=== PATIENT | female | born 1935 | race Two or more races ===

== ENCOUNTER 2021-05-26 16:26 | Emergency (ER) | payer MEDICARE, MEDICAID ==
[~2021-05-26] VITALS: Ht 160 cm; Wt 56.7 kg
[~2021-05-26 16:26] MED LIST: FURO1TAB31; NORVASC; OME20GT; PEPCID; POTA-220
[2021-05-26 20:10] LABS: Basophils # (auto) 0 10 ^3/uL (0-0.2); Basophils % (auto) 0.7 % (0.0-2.0); Eosinophils # (auto) 0.3 10 ^3/uL (0-0.8); Eosinophils % (auto) 6.7 % (0.0-7.0); Hematocrit 23.2 % (36.0-46.0); Hemoglobin 7.2 g/dL (12.2-16.2); Lymphocytes # (auto) 0.8 10 ^3/uL (0.4-5.4); Lymphocytes % (auto) 22.2 % (10.0-50.0); Mean Corpuscular Hemoglobin 27.2 pg (28.0-32.0); Mean Corpuscular Hgb Conc. 31.2 g/dL (32.0-36.0); Mean Corpuscular Volume 87.4 fL (80.0-100.0); Monocytes # (auto) 0.4 10 ^3/uL (0-1.3); Monocytes % (auto) 11.2 % (0.0-12.0); Neutrophils # (auto) 2.2 10 ^3/uL (1.6-8.6); Neutrophils % (auto) 59.2 % (37.0-80.0); Nucleated Red Blood Cells % 0.2 %; Red Blood Cells 2.66 10^6/uL (4.0-5.20); White Blood Cell 3.8 10^3/uL (4.4-10.8)
[2021-05-26 20:28] LABS: Albumin 3.1 g/dL (3.4-5.0); Anion Gap 7 (5-15); BUN/Creatinine Ratio 14.4; Blood Urea Nitrogen 13 mg/dL (7-18); Calcium 8.7 mg/dL (8.5-10.1); Carbon Dioxide 23 mmol/L (21-32); Chloride 116 mmol/L (98-107); GFR African American 76 mL/min; GFR Non-African American 63 mL/min; Glucose 111 mg/dL (74-106); Magnesium 2.7 mg/dL (1.6-2.6); Potassium 3.9 mmol/L (3.5-5.1); Sodium 146 mmol/L (136-145)
[2021-05-26 20:35] LABS: Alanine Aminotransferase 23 U/L (13-56); Alkaline Phosphatase 117 U/L (45-117); Aspartate Aminotransferase 22 U/L (15-37); Bilirubin, Total 0.4 mg/dL (0.2-1.0); Total Protein 6.5 g/dL (6.4-8.2)
[2021-05-26 20:36] LABS: Urine Bacteria FEW /hpf (None Seen); Urine Blood Negative /uL (Negative); Urine Specific Gravity 1.005 (1.001-1.035); Urine WBC 13 /hpf (0 - 5)
[2021-05-26] MEDS ORDERED: cefTRIAXone 1GM/50ML D5W 50 ML IV ONE (23:15)
[2021-05-27] MEDS ORDERED: ACETAMINOPHEN 500 MG TAB PO ONE (00:45)
[2021-05-27 01:42] VITALS: BP 121/44
== END 2021-05-27 01:46 | disposition home or self-care (01) ==
LOC: EDBD 16:26 → ER 16:26
DX: F41.0 Panic disorder [episodic paroxysmal anxiety] (principal); R53.1 Weakness; R42 Dizziness and giddiness; R06.02 Shortness of breath; I10 Essential (primary) hypertension; E78.5 Hyperlipidemia, unspecified; F17.210 Nicotine dependence, cigarettes, uncomplicated; Z90.710 Acquired absence of both cervix and uterus; Z79.899 Other long term (current) drug therapy
CPT/HCPCS: 36415; 71045; 80053; 81001; 83735; 83880; 84484; 85025; 93005; 96365; 99285; J0696

== ENCOUNTER 2022-04-21 11:16 | Inpatient (IN) | payer MEDICARE, MEDICAID ==
[~2022-04-21] VITALS: Ht 160 cm; Wt 54.5 kg
[2022-04-21 12:47] LABS: Urine Bacteria MOD /hpf (None Seen); Urine Blood Negative /uL (Negative); Urine Specific Gravity 1.013 (1.001-1.035); Urine WBC 78 /hpf (0 - 5)
[2022-04-21 12:59] LABS: Albumin 3.6 g/dL (3.4-5.0); Calcium 8.5 mg/dL (8.5-10.1); Potassium 4.3 mmol/L (3.5-5.1)
[2022-04-21 13:00] LABS: Eosinophils # (auto) 0.3 10 ^3/uL (0-0.8); Hemoglobin 7.8 g/dL (12.2-16.2); Lymphocytes # (auto) 0.9 10 ^3/uL (0.4-5.4); Lymphocytes % (auto) 14.8 % (10.0-50.0); Monocytes # (auto) 0.6 10 ^3/uL (0-1.3)
[2022-04-21 13:01] LABS: Basophils # (auto) 0 10 ^3/uL (0-0.2); Basophils % (auto) 0.5 % (0.0-2.0); Eosinophils % (auto) 4.5 % (0.0-7.0); Hematocrit 24.8 % (36.0-46.0); Mean Corpuscular Hemoglobin 25.3 pg (28.0-32.0); Mean Corpuscular Hgb Conc. 31.4 g/dL (32.0-36.0); Mean Corpuscular Volume 80.8 fL (80.0-100.0); Monocytes % (auto) 9.1 % (0.0-12.0); Neutrophils # (auto) 4.3 10 ^3/uL (1.6-8.6); Neutrophils % (auto) 71.1 % (37.0-80.0); Red Blood Cells 3.07 10^6/uL (4.0-5.20); Red Cell Distribution Width 18.3 % (11.8-14.3); White Blood Cell 6.1 10^3/uL (4.4-10.8)
[2022-04-21 13:03] LABS: BUN/Creatinine Ratio 25.6; Bilirubin, Total 0.5 mg/dL (0.2-1.0); Total Protein 6.9 g/dL (6.4-8.2)
[2022-04-21 13:17] LABS: INR 0.93 (0.9-1.15); Partial Thromboplastin Time 26.5 sec (24.6-33.4)
[2022-04-21] MEDS ORDERED: MORPHINE SULFATE INJ 2 MG/ml SYRG IV PRN (18:45)
[2022-04-21] MEDS ORDERED: NITROGLYCERIN 0.4 MG SL TAB SL PRN (18:45)
[2022-04-21 19:36] LABS: Cholesterol 101 mg/dL (< 200)
[2022-04-21 19:40] LABS: HDL Cholesterol 40 mg/dL (40-59); LDL Cholesterol 47 mg/dL (< 100); Triglycerides 216 mg/dL (< 150)
[2022-04-21] MEDS ORDERED: FUROSEMIDE 20 MG/2 ML VIAL IV ONE (23:00)
[2022-04-21 23:23] VITALS: BP 119/36
[2022-04-21 23:27] LABS: Hematocrit 22.4 % (36.0-46.0)
[2022-04-21 23:41] VITALS: BP 119/33
[2022-04-22] VITALS (9 sets, daily range): BP systolic 113–145; BP diastolic 32–50
[2022-04-22] MEDS ORDERED: ACETAMINOPHEN 325 MG TAB PO PRN (00:03)
[2022-04-22 05:27] LABS: Basophils # (auto) 0 10 ^3/uL (0-0.2); Eosinophils # (auto) 0.3 10 ^3/uL (0-0.8); Lymphocytes # (auto) 1.2 10 ^3/uL (0.4-5.4); Monocytes # (auto) 0.7 10 ^3/uL (0-1.3); Monocytes % (auto) 11.3 % (0.0-12.0)
[2022-04-22 05:31] LABS: Basophils % (auto) 0.7 % (0.0-2.0); Eosinophils % (auto) 5.1 % (0.0-7.0); Hematocrit 28.7 % (36.0-46.0); Hemoglobin 9.3 g/dL (12.2-16.2); Mean Corpuscular Hemoglobin 26.2 pg (28.0-32.0); Mean Corpuscular Hgb Conc. 32.5 g/dL (32.0-36.0); Mean Corpuscular Volume 80.5 fL (80.0-100.0); Neutrophils # (auto) 3.7 10 ^3/uL (1.6-8.6); Neutrophils % (auto) 62.9 % (37.0-80.0); Nucleated Red Blood Cells % 0.1 %; Red Blood Cells 3.56 10^6/uL (4.0-5.20)
[2022-04-22 05:45] LABS: Calcium 8.6 mg/dL (8.5-10.1); Potassium 3.9 mmol/L (3.5-5.1)
[2022-04-22 05:51] LABS: Albumin 3.3 g/dL (3.4-5.0); BUN/Creatinine Ratio 25.4; Bilirubin, Total 0.4 mg/dL (0.2-1.0); Total Protein 6.5 g/dL (6.4-8.2)
[2022-04-22] MEDS: ENOXAPARIN SOD 40 MG/0.4 ML SYRINGE SC SCH (08:57)
[2022-04-22] MEDS: PANTOPRAZOLE 40 MG/10 ML VIAL INJ IV SCH (08:57)
[2022-04-22] MEDS ORDERED: PNEUMOCOCCAL VACC POLYS 25 MCG/0.5 ML VIAL IM ONE (10:00)
[2022-04-22] MEDS ORDERED: NICOTINE 7MG/24HR TOPICAL PATCH TD SCH (10:00)
[2022-04-22] MEDS ORDERED: cefTRIAXone 1GM/50ML D5W 50 ML IV ONE (11:30)
[2022-04-22] MEDS ORDERED: DOCUSATE SOD 100 MG CAP PO ONE (12:00)
[2022-04-22] MEDS ORDERED: LACTULOSE 20Gm/30ML SOLN PO ONE (12:00)
[2022-04-22] MEDS: DOCUSATE SOD 100 MG CAP PO SCH (22:24)
[2022-04-22] MEDS: LACTULOSE 20Gm/30ML SOLN PO SCH (22:24)
[2022-04-23 04:35] VITALS: BP 128/48
[2022-04-23 08:00] VITALS: BP 141/37
[2022-04-23 08:17] VITALS: BP 141/37
[2022-04-23] MEDS ORDERED: cefTRIAXone 1GM/50ML D5W 50 ML IV SCH (09:00)
[2022-04-23] MEDS: LACTULOSE 20Gm/30ML SOLN PO SCH (10:00)
[2022-04-23] MEDS: DOCUSATE SOD 100 MG CAP PO SCH (10:01)
[2022-04-23] MEDS: PANTOPRAZOLE 40 MG/10 ML VIAL INJ IV SCH (10:02)
[2022-04-23] MEDS: ENOXAPARIN SOD 40 MG/0.4 ML SYRINGE SC SCH (10:02)
[2022-04-23 11:54] VITALS: BP 129/38
[2022-04-23 13:39] VITALS: BP 145/48
== END 2022-04-23 14:15 | disposition home or self-care (01) | DRG 812 ==
LOC: ER 11:16 → TELE 18:45 → TELE-EAST 22:10
PROVIDERS: ADMIT Registered Nurse; ATTEND Internal Medicine
PROC: 30233N1 Transfusion of Nonautologous Red Blood Cells into Peripheral Vein, Percutaneous Approach (ICD-10-PCS; principal; 2022-04-21)
DX: D64.9 Anemia, unspecified (principal); N39.0 Urinary tract infection, site not specified; E78.5 Hyperlipidemia, unspecified; I10 Essential (primary) hypertension; K27.9 Peptic ulcer, site unspecified, unspecified as acute or chronic, without hemorrhage or perforation; R51.9 Headache, unspecified; R79.89 Other specified abnormal findings of blood chemistry; F17.210 Nicotine dependence, cigarettes, uncomplicated; K59.00 Constipation, unspecified; Z87.11 Personal history of peptic ulcer disease; Z90.710 Acquired absence of both cervix and uterus; Z20.822 Contact with and (suspected) exposure to COVID-19
CPT/HCPCS: 36415; 70450; 74176; 80053; 80061; 81001; 82270; 83036; 84443; 85014; 85018; 85025; 85610; 85730; 86850; 86900; 86901; 86920; 87086; 87088; 87186; 93005; 93306; 93886; C9113; G0378; J0696

== ENCOUNTER 2022-08-15 21:38 | Emergency (ER) | payer MEDICARE, MEDICAID ==
[~2022-08-15] VITALS: Ht 157.5 cm; Wt 63.5 kg
[2022-08-15 23:03] LABS: Eosinophils # (auto) 0.2 10 ^3/uL (0-0.8); Hemoglobin 8.9 g/dL (12.2-16.2); Lymphocytes # (auto) 0.2 10 ^3/uL (0.4-5.4); Monocytes # (auto) 0.5 10 ^3/uL (0-1.3)
[2022-08-15 23:09] LABS: Basophils # (auto) 0 10 ^3/uL (0-0.2); Basophils % (auto) 0.5 % (0.0-2.0); Eosinophils % (auto) 1.9 % (0.0-7.0); Hematocrit 27.2 % (36.0-46.0); Lymphocytes % (auto) 2.3 % (10.0-50.0); Mean Corpuscular Hemoglobin 24.8 pg (28.0-32.0); Mean Corpuscular Hgb Conc. 32.7 g/dL (32.0-36.0); Mean Corpuscular Volume 75.9 fL (80.0-100.0); Monocytes % (auto) 4.8 % (0.0-12.0); Neutrophils # (auto) 8.7 10 ^3/uL (1.6-8.6); Neutrophils % (auto) 90.5 % (37.0-80.0); Red Blood Cells 3.58 10^6/uL (4.0-5.20); White Blood Cell 9.6 10^3/uL (4.4-10.8)
[2022-08-15 23:19] LABS: Albumin 3.2 g/dL (3.4-5.0); BUN/Creatinine Ratio 16.5; Potassium 3.5 mmol/L (3.5-5.1); Red Cell Distribution Width 21.8 % (11.8-14.3)
[2022-08-15 23:22] LABS: Bilirubin, Total 0.3 mg/dL (0.2-1.0); Total Protein 6.4 g/dL (6.4-8.2)
[2022-08-16 02:17] LABS: Urine Bacteria None Seen /hpf (None Seen)
[2022-08-16 02:18] LABS: Urine Specific Gravity 1.013 (1.001-1.035)
[2022-08-16 02:19] LABS: Urine Blood 1+ /uL (Negative); Urine WBC 21 /hpf (0 - 5); Urine WBC Clumps PRESENT /hpf (None Seen)
[2022-08-16 02:30] VITALS: BP 125/37
[2022-08-16] MEDS ORDERED: CIPR-173 PO (03:14)
[2022-08-16] MEDS ORDERED: cefTRIAXone 1GM/50ML D5W 50 ML IV ONE (03:15)
[2022-08-16] MEDS ORDERED: cefTRIAXone SOD 1,000 MG VL IM ONE (03:30)
== END 2022-08-16 03:30 | disposition home or self-care (01) ==
LOC: EDBD 21:38 → EDUNIT# 21:38 → ER 21:40
DX: N39.0 Urinary tract infection, site not specified (principal); I10 Essential (primary) hypertension; E78.5 Hyperlipidemia, unspecified; Z86.2 Personal history of diseases of the blood and blood-forming organs and certain disorders involving the immune mechanism; Z90.49 Acquired absence of other specified parts of digestive tract; Z90.710 Acquired absence of both cervix and uterus; Z79.899 Other long term (current) drug therapy; Z20.822 Contact with and (suspected) exposure to COVID-19
CPT/HCPCS: 36415; 71045; 80053; 81001; 85025; 87426; 87804; 93005; 96372; 99285; J0696

== ENCOUNTER 2022-09-09 12:57 | Inpatient (IN) | payer MEDICARE, MEDICAID ==
[~2022-09-09] VITALS: Ht 160 cm; Wt 53.7 kg
[~2022-09-09 12:57] MED LIST changes: +CIPR-173 PO
[2022-09-09 13:48] LABS: Basophils # (auto) 0 10 ^3/uL (0-0.2); Basophils % (auto) 0.4 % (0.0-2.0); Hemoglobin 8.8 g/dL (12.2-16.2); Neutrophils # (auto) 3.7 10 ^3/uL (1.6-8.6); White Blood Cell 5.6 10^3/uL (4.4-10.8)
[2022-09-09 13:49] LABS: Eosinophils # (auto) 0.2 10 ^3/uL (0-0.8); Eosinophils % (auto) 4.3 % (0.0-7.0); Hematocrit 27.6 % (36.0-46.0); Lymphocytes % (auto) 18.1 % (10.0-50.0); Mean Corpuscular Hemoglobin 26.5 pg (28.0-32.0); Mean Corpuscular Hgb Conc. 31.8 g/dL (32.0-36.0); Mean Corpuscular Volume 83.5 fL (80.0-100.0); Monocytes # (auto) 0.6 10 ^3/uL (0-1.3); Neutrophils % (auto) 67.2 % (37.0-80.0); Nucleated Red Blood Cells % 0.1 %; Red Cell Distribution Width 27.7 % (11.8-14.3)
[2022-09-09 13:58] LABS: Albumin 3.7 g/dL (3.4-5.0); BUN/Creatinine Ratio 15.5; Calcium 8.4 mg/dL (8.5-10.1); Magnesium 2.4 mg/dL (1.6-2.6); Potassium 3.8 mmol/L (3.5-5.1)
[2022-09-09 14:01] LABS: Bilirubin, Total 0.3 mg/dL (0.2-1.0); Total Protein 6.4 g/dL (6.4-8.2)
[2022-09-09] MEDS ORDERED: NITROGLYCERIN 0.4 MG SL TAB SL PRN (18:45)
[2022-09-09] MEDS ORDERED: ONDANSETRON HCL 4 MG/2 ML VIAL IV PRN (18:45)
[2022-09-09] MEDS ORDERED: MORPHINE SULFATE 4 MG/ML SYR/VIAL IV PRN (18:45)
[2022-09-09 20:17] LABS: INR 0.95 (0.9-1.15)
[2022-09-09 23:30] VITALS: BP 188/100
[2022-09-10] VITALS (7 sets, daily range): BP systolic 126–161; BP diastolic 34–54
[2022-09-10] MEDS: ACETAMINOPHEN 325 MG TAB PO PRN ×2 (00:25→21:11)
[2022-09-10] MEDS: ATORVASTATIN 20 MG TAB PO SCH ×2 (00:26→21:11)
[2022-09-10] MEDS ORDERED: hydrALAZINE HCL 20 MG/ML VL IV PRN (00:45)
[2022-09-10 01:11] LABS: Hemoglobin 9.3 g/dL (12.2-16.2)
[2022-09-10 01:13] LABS: Hematocrit 29.2 % (36.0-46.0)
[2022-09-10] MEDS ORDERED: METO25TA93 PO (03:34)
[2022-09-10] MEDS ORDERED: AML5T PO (03:50)
[2022-09-10] MEDS ORDERED: ASPI-543 PO (03:58)
[2022-09-10] MEDS ORDERED: LOSA-69 PO ×2 (03:59→08:59)
[2022-09-10 08:21] LABS: Basophils # (auto) 0 10 ^3/uL (0-0.2); Basophils % (auto) 0.6 % (0.0-2.0); Eosinophils # (auto) 0.4 10 ^3/uL (0-0.8); Eosinophils % (auto) 8.8 % (0.0-7.0); Hematocrit 26.7 % (36.0-46.0); Hemoglobin 8.7 g/dL (12.2-16.2); Lymphocytes # (auto) 0.9 10 ^3/uL (0.4-5.4); Lymphocytes % (auto) 20.9 % (10.0-50.0); Mean Corpuscular Hemoglobin 27.5 pg (28.0-32.0); Mean Corpuscular Hgb Conc. 32.5 g/dL (32.0-36.0); Mean Corpuscular Volume 84.4 fL (80.0-100.0); Monocytes # (auto) 0.4 10 ^3/uL (0-1.3); Neutrophils # (auto) 2.4 10 ^3/uL (1.6-8.6); Neutrophils % (auto) 59.7 % (37.0-80.0); Nucleated Red Blood Cells % 0.2 %; Red Blood Cells 3.16 10^6/uL (4.0-5.20); Red Cell Distribution Width 27.3 % (11.8-14.3); White Blood Cell 4.1 10^3/uL (4.4-10.8)
[2022-09-10 08:40] LABS: Albumin 3.3 g/dL (3.4-5.0); Calcium 8.8 mg/dL (8.5-10.1); Potassium 3.8 mmol/L (3.5-5.1)
[2022-09-10 08:46] LABS: Bilirubin, Total 0.4 mg/dL (0.2-1.0); Total Protein 5.9 g/dL (6.4-8.2)
[2022-09-10] MEDS ORDERED: AMLO-489 PO (08:56)
[2022-09-10] MEDS ORDERED: PANT40TA2 PO (09:02)
[2022-09-10] MEDS ORDERED: ATOR-47 PO (09:04)
[2022-09-10] MEDS: DOCUSATE SOD 100 MG CAP PO SCH (09:10)
[2022-09-10] MEDS ORDERED: PANTOPRAZOLE 40 MG/10 ML VIAL INJ IV SCH (10:00)
[2022-09-10] MEDS ORDERED: GLUCAGON HYDROCHLORIDE (RDNA) 1 MG VIAL IV ONE (11:45)
[2022-09-10] MEDS ORDERED: TICAGRELOR 90 MG TAB PO ONE (11:45)
[2022-09-10] MEDS ORDERED: CILOSTAZOL 100 MG TAB PO ONE (11:45)
[2022-09-10] MEDS ORDERED: LOSARTAN POTASSIUM 50 MG TAB PO ONE (11:45)
[2022-09-10 12:23] LABS: Hematocrit 27.2 % (36.0-46.0); Hemoglobin 9.1 g/dL (12.2-16.2)
[2022-09-10] MEDS ORDERED: ASPirin 81 mg TAB PO ONE (13:45)
[2022-09-10] MEDS: CILOSTAZOL 100 MG TAB PO SCH ×2 (14:21→21:11)
[2022-09-10] MEDS ORDERED: NICOTINE 14 MG/24HR TOPICAL PATCH TD ONE (15:15)
[2022-09-10 17:31] LABS: Urine Amorphous Crystal FEW /hpf (None Seen); Urine Bacteria NONE SEEN /hpf (None Seen); Urine Blood 1+ /uL (Negative); Urine Specific Gravity 1.011 (1.001-1.035); Urine WBC <1 /hpf (0 - 5)
[2022-09-10 18:56] LABS: Hematocrit 27.9 % (36.0-46.0); Hemoglobin 9.1 g/dL (12.2-16.2)
[2022-09-10] MEDS ORDERED: TICAGRELOR 60 MG TAB PO SCH (22:00)
[2022-09-10] MEDS ORDERED: CILOSTAZOL 100 MG TAB PO SCH (22:00)
[2022-09-11] VITALS (7 sets, daily range): BP systolic 90–173; BP diastolic 39–75
[2022-09-11 08:10] LABS: Basophils # (auto) 0 10 ^3/uL (0-0.2); Hemoglobin 8.2 g/dL (12.2-16.2); Lymphocytes # (auto) 1.1 10 ^3/uL (0.4-5.4); Monocytes # (auto) 0.5 10 ^3/uL (0-1.3)
[2022-09-11 08:12] LABS: Basophils % (auto) 0.6 % (0.0-2.0); Eosinophils # (auto) 0.4 10 ^3/uL (0-0.8); Eosinophils % (auto) 8.1 % (0.0-7.0); Hematocrit 25.2 % (36.0-46.0); Lymphocytes % (auto) 24.5 % (10.0-50.0); Mean Corpuscular Hemoglobin 26.9 pg (28.0-32.0); Mean Corpuscular Hgb Conc. 32.3 g/dL (32.0-36.0); Mean Corpuscular Volume 83.3 fL (80.0-100.0); Monocytes % (auto) 10.5 % (0.0-12.0); Neutrophils # (auto) 2.6 10 ^3/uL (1.6-8.6); Neutrophils % (auto) 56.3 % (37.0-80.0); Nucleated Red Blood Cells % 0.1 %; Red Blood Cells 3.03 10^6/uL (4.0-5.20); White Blood Cell 4.6 10^3/uL (4.4-10.8)
[2022-09-11 08:23] LABS: Red Cell Distribution Width 27.3 % (11.8-14.3)
[2022-09-11 08:25] LABS: BUN/Creatinine Ratio 14.4; Calcium 8.3 mg/dL (8.5-10.1)
[2022-09-11 08:29] LABS: % Iron Saturation 13.9 % (15-50)
[2022-09-11] MEDS: DOCUSATE SOD 100 MG CAP PO SCH (09:41)
[2022-09-11] MEDS: CILOSTAZOL 100 MG TAB PO SCH ×2 (09:43→21:26)
[2022-09-11] MEDS: ASPirin 81 mg TAB PO SCH (09:43)
[2022-09-11] MEDS: LOSARTAN POTASSIUM 50 MG TAB PO SCH (09:44)
[2022-09-11] MEDS: NICOTINE 14 MG/24HR TOPICAL PATCH TD SCH (09:45)
[2022-09-11] MEDS: PANTOPRAZOLE 40 MG TAB PO SCH (09:48)
[2022-09-11 16:03] LABS: Hematocrit 26.1 % (36.0-46.0); Hemoglobin 8.7 g/dL (12.2-16.2)
[2022-09-11] MEDS: ACETAMINOPHEN 325 MG TAB PO PRN (17:20)
[2022-09-11] MEDS: ATORVASTATIN 20 MG TAB PO SCH (21:25)
[2022-09-11] MEDS: ENOXAPARIN SOD 60 MG/0.6 ML SYRINGE SC SCH (21:26)
[2022-09-11 21:37] LABS: Hematocrit 25.3 % (36.0-46.0); Hemoglobin 8.4 g/dL (12.2-16.2)
[2022-09-12] VITALS (7 sets, daily range): BP systolic 131–159; BP diastolic 41–49
[2022-09-12 08:02] LABS: Basophils # (auto) 0 10 ^3/uL (0-0.2); Basophils % (auto) 0.4 % (0.0-2.0); Eosinophils # (auto) 0.3 10 ^3/uL (0-0.8); Eosinophils % (auto) 3.9 % (0.0-7.0); Hematocrit 26.5 % (36.0-46.0); Hemoglobin 8.5 g/dL (12.2-16.2); Lymphocytes # (auto) 0.8 10 ^3/uL (0.4-5.4); Lymphocytes % (auto) 10.7 % (10.0-50.0); Mean Corpuscular Hemoglobin 27.1 pg (28.0-32.0); Mean Corpuscular Hgb Conc. 32.3 g/dL (32.0-36.0); Mean Corpuscular Volume 84.1 fL (80.0-100.0); Monocytes # (auto) 0.7 10 ^3/uL (0-1.3); Monocytes % (auto) 9.4 % (0.0-12.0); Neutrophils # (auto) 5.9 10 ^3/uL (1.6-8.6); Neutrophils % (auto) 75.6 % (37.0-80.0); Nucleated Red Blood Cells % 0.1 %; Red Blood Cells 3.15 10^6/uL (4.0-5.20); White Blood Cell 7.9 10^3/uL (4.4-10.8)
[2022-09-12] MEDS: DOCUSATE SOD 100 MG CAP PO SCH (08:34)
[2022-09-12] MEDS: ASPirin 81 mg TAB PO SCH (08:34)
[2022-09-12] MEDS: PANTOPRAZOLE 40 MG TAB PO SCH (08:35)
[2022-09-12] MEDS: LOSARTAN POTASSIUM 50 MG TAB PO SCH (08:35)
[2022-09-12] MEDS: ENOXAPARIN SOD 60 MG/0.6 ML SYRINGE SC SCH ×2 (08:35→21:42)
[2022-09-12 08:36] LABS: Red Cell Distribution Width 27.7 % (11.8-14.3)
[2022-09-12] MEDS: CILOSTAZOL 100 MG TAB PO SCH ×2 (08:36→21:42)
[2022-09-12] MEDS: NICOTINE 14 MG/24HR TOPICAL PATCH TD SCH (08:41)
[2022-09-12] MEDS ORDERED: SODIUM FERR GLUC 62.5MG/5ML 125 MG in SODIUM CHL 0.9% 100 ML IV ONE (12:30)
[2022-09-12] MEDS: ATORVASTATIN 20 MG TAB PO SCH (21:41)
[2022-09-12] MEDS: ACETAMINOPHEN 325 MG TAB PO PRN (21:42)
[2022-09-13] VITALS (9 sets, daily range): BP systolic 0–159; BP diastolic 38–46
[2022-09-13 07:42] LABS: Basophils # (auto) 0 10 ^3/uL (0-0.2); Basophils % (auto) 0.7 % (0.0-2.0); Eosinophils # (auto) 0.3 10 ^3/uL (0-0.8); Eosinophils % (auto) 8.1 % (0.0-7.0); Hematocrit 25.9 % (36.0-46.0); Hemoglobin 8.7 g/dL (12.2-16.2); Lymphocytes # (auto) 0.8 10 ^3/uL (0.4-5.4); Lymphocytes % (auto) 19.6 % (10.0-50.0); Mean Corpuscular Hgb Conc. 33.5 g/dL (32.0-36.0); Mean Corpuscular Volume 83.4 fL (80.0-100.0); Monocytes # (auto) 0.5 10 ^3/uL (0-1.3); Monocytes % (auto) 11.8 % (0.0-12.0); Neutrophils # (auto) 2.5 10 ^3/uL (1.6-8.6); Neutrophils % (auto) 59.8 % (37.0-80.0); Red Blood Cells 3.11 10^6/uL (4.0-5.20); Red Cell Distribution Width 27.5 % (11.8-14.3); White Blood Cell 4.3 10^3/uL (4.4-10.8)
[2022-09-13 07:52] LABS: Calcium 8.7 mg/dL (8.5-10.1)
[2022-09-13 07:54] LABS: BUN/Creatinine Ratio 12.6
[2022-09-13] MEDS: LOSARTAN POTASSIUM 50 MG TAB PO SCH (09:59)
[2022-09-13] MEDS: ASPirin 81 mg TAB PO SCH (10:06)
[2022-09-13] MEDS: CILOSTAZOL 100 MG TAB PO SCH ×2 (10:06→21:31)
[2022-09-13] MEDS: DOCUSATE SOD 100 MG CAP PO SCH (10:06)
[2022-09-13] MEDS: NICOTINE 14 MG/24HR TOPICAL PATCH TD SCH (10:07)
[2022-09-13] MEDS: PANTOPRAZOLE 40 MG TAB PO SCH (10:07)
[2022-09-13] MEDS: SODIUM FERR GLUC 62.5MG/5ML 125 MG in SODIUM CHL 0.9% 100 ML IV SCH (12:00)
[2022-09-13] MEDS ORDERED: IOHEXOL 350 MG/ML 100ML IJ ONE (14:42)
[2022-09-13] MEDS ORDERED: LIDOCAINE 2%HCL (LOCAL ANESTH.) INJ 20ML MDV ONE (14:42)
[2022-09-13] MEDS ORDERED: GLYCOPYRROLATE 0.2 MG/ML 1ML VIAL ONE (14:44)
[2022-09-13] MEDS ORDERED: ANGIOMAX 250 MG VIAL IV ONE (14:44)
[2022-09-13] MEDS ORDERED: SODIUM CHL 0.9% 0 ML ONE (14:44)
[2022-09-13] MEDS ORDERED: PHENYLEPHRINE IV 0 ML IV ONE (14:45)
[2022-09-13] MEDS ORDERED: MIDAZOLAM HCL 2MG/2ML 2ml VIAL (1mg/ml) ONE (15:10)
[2022-09-13] MEDS: ACETAMINOPHEN 325 MG TAB PO PRN (16:54)
[2022-09-13] MEDS: ATORVASTATIN 20 MG TAB PO SCH (21:31)
[2022-09-14 05:01] VITALS: BP 143/46
[2022-09-14 08:00] VITALS: BP 143/46
[2022-09-14 08:00] LABS: Basophils # (auto) 0 10 ^3/uL (0-0.2); Basophils % (auto) 0.4 % (0.0-2.0); Eosinophils # (auto) 0.4 10 ^3/uL (0-0.8); Eosinophils % (auto) 7.3 % (0.0-7.0); Hematocrit 26.4 % (36.0-46.0); Hemoglobin 8.6 g/dL (12.2-16.2); Lymphocytes # (auto) 0.8 10 ^3/uL (0.4-5.4); Lymphocytes % (auto) 15.5 % (10.0-50.0); Mean Corpuscular Hemoglobin 27.2 pg (28.0-32.0); Mean Corpuscular Hgb Conc. 32.5 g/dL (32.0-36.0); Mean Corpuscular Volume 83.8 fL (80.0-100.0); Monocytes # (auto) 0.6 10 ^3/uL (0-1.3); Monocytes % (auto) 10.3 % (0.0-12.0); Neutrophils # (auto) 3.6 10 ^3/uL (1.6-8.6); Neutrophils % (auto) 66.5 % (37.0-80.0); Nucleated Red Blood Cells % 0.1 %; Red Blood Cells 3.15 10^6/uL (4.0-5.20); White Blood Cell 5.4 10^3/uL (4.4-10.8)
[2022-09-14 08:05] LABS: BUN/Creatinine Ratio 17.3; Calcium 8.4 mg/dL (8.5-10.1); Potassium 4.1 mmol/L (3.5-5.1)
[2022-09-14 09:00] VITALS: BP 150/85
[2022-09-14] MEDS: NICOTINE 14 MG/24HR TOPICAL PATCH TD SCH (09:03)
[2022-09-14] MEDS: ASPirin 81 mg TAB PO SCH (09:03)
[2022-09-14] MEDS: PANTOPRAZOLE 40 MG TAB PO SCH (09:03)
[2022-09-14] MEDS: LOSARTAN POTASSIUM 50 MG TAB PO SCH (09:05)
[2022-09-14] MEDS: DOCUSATE SOD 100 MG CAP PO SCH (09:05)
[2022-09-14] MEDS: CILOSTAZOL 100 MG TAB PO SCH (09:05)
[2022-09-14] MEDS ORDERED: CLOP75TA28 PO (11:51)
[2022-09-14] MEDS ORDERED: PANT40TA2 PO (11:51)
[2022-09-14] MEDS: SODIUM FERR GLUC 62.5MG/5ML 125 MG in SODIUM CHL 0.9% 100 ML IV SCH (11:53)
[2022-09-14 13:00] VITALS: BP 142/40
[2022-09-14 13:22] VITALS: BP 142/40
[2022-09-14] MEDS ORDERED: DEXT1SYP9 PO ×2 (14:39→14:48)
== END 2022-09-14 15:03 | disposition home or self-care (01) | DRG 812 ==
LOC: ER 12:57 → TELE 18:42 → TELE-WESTW 23:26
PROVIDERS: ADMIT Nurse Practitioner Family; ATTEND Internal Medicine
PROC: B315YZZ Fluoroscopy of Bilateral Common Carotid Arteries using Other Contrast (ICD-10-PCS; principal; 2022-09-13)
DX: D64.9 Anemia, unspecified (principal); I44.1 Atrioventricular block, second degree; E78.5 Hyperlipidemia, unspecified; I10 Essential (primary) hypertension; I25.10 Atherosclerotic heart disease of native coronary artery without angina pectoris; K27.9 Peptic ulcer, site unspecified, unspecified as acute or chronic, without hemorrhage or perforation; Z20.822 Contact with and (suspected) exposure to COVID-19; R51.9 Headache, unspecified; F41.9 Anxiety disorder, unspecified; I73.9 Peripheral vascular disease, unspecified; J44.9 Chronic obstructive pulmonary disease, unspecified; Z72.0 Tobacco use; Z86.73 Personal history of transient ischemic attack (TIA), and cerebral infarction without residual deficits; Z95.5 Presence of coronary angioplasty implant and graft; Z79.02 Long term (current) use of antithrombotics/antiplatelets; Z79.899 Other long term (current) drug therapy; Z79.82 Long term (current) use of aspirin; Z87.11 Personal history of peptic ulcer disease; Z90.710 Acquired absence of both cervix and uterus; Z90.49 Acquired absence of other specified parts of digestive tract
CPT/HCPCS: 36415; 70450; 71045; 80048; 80053; 80061; 81001; 82270; 83540; 83550; 83735; 83880; 84484; 85014; 85018; 85025; 85379; 85610; 86850; 86900; 86901; 87426; 93005; 93886; 93925; 99152; C9113; G0378; J2250

== ENCOUNTER 2022-09-30 09:56 | Emergency (ER) | payer MEDICARE, MEDICAID ==
[~2022-09-30] VITALS: Ht 162.6 cm; Wt 54.5 kg
[~2022-09-30 09:56] MED LIST changes: +AMLO-489 PO; +ASPI-543 PO; +ATOR-47 PO; +CLOP75TA28 PO; -FURO1TAB31; +LOSA-69 PO; +METO25TA93 PO; -NORVASC; -OME20GT; +PANT40TA2 PO; -PEPCID; -POTA-220
[2022-09-30 12:27] VITALS: BP 165/40
== END 2022-09-30 12:51 | disposition home or self-care (01) ==
LOC: ER 10:02
DX: M79.661 Pain in right lower leg (principal); J44.9 Chronic obstructive pulmonary disease, unspecified; E78.5 Hyperlipidemia, unspecified; I10 Essential (primary) hypertension; F17.210 Nicotine dependence, cigarettes, uncomplicated; Z90.710 Acquired absence of both cervix and uterus
CPT/HCPCS: 93971

== ENCOUNTER → 2022-12-12 | Outpatient (CLI) | payer MEDICARE, MEDICAID ==
[2022-12-12 10:44] LABS: Basophils # (auto) 0.1 10 ^3/uL (0-0.2); Basophils % (auto) 1.5 % (0.0-2.0); Eosinophils # (auto) 0.4 10 ^3/uL (0-0.8); Eosinophils % (auto) 6.7 % (0.0-7.0); Hemoglobin 12.6 g/dL (12.2-16.2); Lymphocytes # (auto) 1.2 10 ^3/uL (0.4-5.4); Lymphocytes % (auto) 21.4 % (10.0-50.0); Mean Corpuscular Hemoglobin 30.5 pg (28.0-32.0); Mean Corpuscular Hgb Conc. 34.9 g/dL (32.0-36.0); Mean Corpuscular Volume 87.3 fL (80.0-100.0); Monocytes # (auto) 0.4 10 ^3/uL (0-1.3); Monocytes % (auto) 7.4 % (0.0-12.0); Neutrophils # (auto) 3.6 10 ^3/uL (1.6-8.6); Nucleated Red Blood Cells % 0.1 %; Red Blood Cells 4.12 10^6/uL (4.0-5.20); Red Cell Distribution Width 14.6 % (11.8-14.3); White Blood Cell 5.7 10^3/uL (4.4-10.8)
[2022-12-12 11:20] LABS: Potassium 3.6 mmol/L (3.5-5.1)
[2022-12-12 11:32] LABS: Albumin 3.5 g/dL (3.4-5.0); BUN/Creatinine Ratio 19.3 (10.0-20.0); Bilirubin, Total 0.5 mg/dL (0.2-1.0); Calcium 8.6 mg/dL (8.5-10.1); Total Protein 6.7 g/dL (6.4-8.2)
[2022-12-12 11:34] LABS: % Iron Saturation 35.3 % (15-50)
== END | disposition home or self-care (01) ==
LOC: LAB 10:20
PROVIDERS: ATTEND Internal Medicine
DX: D50.0 Iron deficiency anemia secondary to blood loss (chronic) (principal); Z79.899 Other long term (current) drug therapy
CPT/HCPCS: 36415; 80053; 82306; 82728; 83540; 83550; 83615; 83735; 85025

== ENCOUNTER → 2023-01-31 | Outpatient (CLI) | payer MEDICARE, MEDICAID ==
[~2023-01-31] MED LIST changes: -AMLO-489 PO; +AMLO1TAB22 PO; -LOSA-69 PO; +LOSA50TA46 PO
[2023-01-31 09:01] LABS: Basophils # (auto) 0 10 ^3/uL (0-0.2); Basophils % (auto) 0.4 % (0.0-2.0); Eosinophils # (auto) 0.4 10 ^3/uL (0-0.8); Eosinophils % (auto) 5.8 % (0.0-7.0); Hematocrit 36.1 % (36.0-46.0); Hemoglobin 12.1 g/dL (12.2-16.2); Lymphocytes % (auto) 16.8 % (10.0-50.0); Mean Corpuscular Hgb Conc. 33.6 g/dL (32.0-36.0); Mean Corpuscular Volume 92.5 fL (80.0-100.0); Monocytes # (auto) 0.6 10 ^3/uL (0-1.3); Monocytes % (auto) 10.4 % (0.0-12.0); Neutrophils # (auto) 4.1 10 ^3/uL (1.6-8.6); Neutrophils % (auto) 66.6 % (37.0-80.0); Red Cell Distribution Width 14.8 % (11.8-14.3); White Blood Cell 6.1 10^3/uL (4.4-10.8)
== END | disposition home or self-care (01) ==
LOC: LAB 08:42
PROVIDERS: ATTEND Internal Medicine
DX: D50.0 Iron deficiency anemia secondary to blood loss (chronic) (principal)
CPT/HCPCS: 36415; 82728; 83540; 85025

== ENCOUNTER → 2023-05-10 | Outpatient (CLI) | payer MEDICARE, MEDICAID ==
[2023-05-10 09:03] LABS: Basophils # (auto) 0 10 ^3/uL (0-0.2); Basophils % (auto) 0.5 % (0.0-2.0); Eosinophils # (auto) 0.5 10 ^3/uL (0-0.8); Eosinophils % (auto) 7.4 % (0.0-7.0); Hematocrit 32.8 % (36.0-46.0); Hemoglobin 11.2 g/dL (12.2-16.2); Lymphocytes # (auto) 1.1 10 ^3/uL (0.4-5.4); Lymphocytes % (auto) 16.9 % (10.0-50.0); Mean Corpuscular Hemoglobin 31.9 pg (28.0-32.0); Mean Corpuscular Hgb Conc. 34.2 g/dL (32.0-36.0); Mean Corpuscular Volume 93.1 fL (80.0-100.0); Monocytes # (auto) 0.6 10 ^3/uL (0-1.3); Monocytes % (auto) 9.4 % (0.0-12.0); Neutrophils # (auto) 4.1 10 ^3/uL (1.6-8.6); Neutrophils % (auto) 65.8 % (37.0-80.0); Nucleated Red Blood Cells % 0.1 %; Red Blood Cells 3.53 10^6/uL (4.0-5.20); Red Cell Distribution Width 12.7 % (11.8-14.3); White Blood Cell 6.2 10^3/uL (4.4-10.8)
[2023-05-10 09:10] LABS: Urine Bacteria FEW /hpf (None Seen); Urine Blood Negative /uL (Negative); Urine Clarity HAZY (Clear); Urine Color Colorless (Yellow); Urine Protein, UAD Negative (Negative); Urine Urobilinogen Normal (Negative); Urine WBC 83 /hpf (0 - 5)
[2023-05-10 09:53] LABS: Alanine Aminotransferase 10 U/L (7-40); Albumin 4.3 g/dL (3.2-4.8); Alkaline Phosphatase 112 U/L (46-116); Calcium 6.7 mg/dL (8.5-10.1); Carbon Dioxide 25.5 mmol/L (20-30); Chloride 108 mmol/L (98-107)
[2023-05-10 09:54] LABS: Anion Gap 8.5 (5-15); Aspartate Aminotransferase 18 U/L (13-40); BUN/Creatinine Ratio 13.7 (10.0-20.0); Bilirubin, Total 0.6 mg/dL (0.2-1.0); Blood Urea Nitrogen 14 mg/dL (9-23); Glucose 114 mg/dL (74-106); Potassium 3.8 mmol/L (3.5-5.1); Sodium 142 mmol/L (136-145); Total Protein 6.6 g/dL (5.7-8.2)
== END | disposition home or self-care (01) ==
LOC: LAB 08:34
PROVIDERS: ATTEND Student in an Organized Health Care Education/Training Program
DX: I10 Essential (primary) hypertension (principal)
CPT/HCPCS: 36415; 80053; 81001; 84439; 84443; 85025

== ENCOUNTER 2023-08-17 09:28 | Emergency (ER) | payer MEDICARE, MEDICAID ==
[~2023-08-17] VITALS: Ht 152.4 cm; Wt 52.5 kg
[2023-08-17 10:13] LABS: Basophils # (auto) 0 10 ^3/uL (0-0.2); Basophils % (auto) 0.7 % (0.0-2.0); Eosinophils # (auto) 0.4 10 ^3/uL (0-0.8); Eosinophils % (auto) 7.3 % (0.0-7.0); Hemoglobin 13.8 g/dL (12.2-16.2); Lymphocytes # (auto) 1.1 10 ^3/uL (0.4-5.4); Mean Corpuscular Hemoglobin 31.3 pg (28.0-32.0); Mean Corpuscular Hgb Conc. 33.8 g/dL (32.0-36.0); Mean Corpuscular Volume 92.7 fL (80.0-100.0); Monocytes # (auto) 0.4 10 ^3/uL (0-1.3); Monocytes % (auto) 7.9 % (0.0-12.0); Neutrophils # (auto) 3.6 10 ^3/uL (1.6-8.6); Neutrophils % (auto) 64.1 % (37.0-80.0); Red Blood Cells 4.43 10^6/uL (4.0-5.20); Red Cell Distribution Width 13.7 % (11.8-14.3); White Blood Cell 5.7 10^3/uL (4.4-10.8)
[2023-08-17 10:50] LABS: Urine Bacteria MOD /hpf (None Seen); Urine Blood Negative /uL (Negative); Urine Clarity Clear (Clear); Urine Color Yellow (Yellow); Urine Protein, UAD Negative (Negative); Urine Specific Gravity 1.003 (1.001-1.035); Urine Urobilinogen Normal (Negative); Urine WBC 9 /hpf (0 - 5); Urine pH 6.5 (5.0-8.0)
[2023-08-17 10:55] LABS: Alanine Aminotransferase 14 U/L (7-40); Albumin 5.1 g/dL (3.2-4.8); Alkaline Phosphatase 124 U/L (46-116); Anion Gap 9 (5-15); Aspartate Aminotransferase 24 U/L (13-40); BUN/Creatinine Ratio 9.1 (10.0-20.0); Bilirubin, Total 0.7 mg/dL (0.2-1.0); Blood Urea Nitrogen 8 mg/dL (9-23); Calcium 8.8 mg/dL (8.5-10.1); Carbon Dioxide 29 mmol/L (20-30); Chloride 105 mmol/L (98-107); Glucose 78 mg/dL (74-106); Potassium 3.1 mmol/L (3.5-5.1); Sodium 143 mmol/L (136-145); Total Protein 7.6 g/dL (5.7-8.2)
[2023-08-17 12:59] LABS: INR 1.03 (0.9-1.15); Prothrombin Time 10.8 sec (9.3-11.8)
[2023-08-17] MEDS ORDERED: MECLIZINE HCL 25 MG TAB PO ONE (13:00)
[2023-08-17] MEDS ORDERED: ONDANSETRON ODT 4 MG TAB PO ONE (13:00)
[2023-08-17] MEDS ORDERED: CEPH250C PO (13:16)
[2023-08-17] MEDS ORDERED: ONDANSETRON ODT 4 MG TAB ONE (13:39)
[2023-08-17] MEDS ORDERED: MECLIZINE HCL 25 MG TAB ONE (13:39)
[2023-08-17 13:52] VITALS: BP 165/51; PULSE 68; RESP 18; TEMP 97.8; O2SAT 95
[2023-08-17] MEDS ORDERED: MAGNESIUM SULFATE 1GM/100ML 100 ML IV SCH (14:00)
[2023-08-17 14:46] LABS: Erythrocyte Sedimentation Rate 10 mm/hr (0-20)
[2023-08-17] MEDS ORDERED: MAGNESIUM SULFATE 1GM/100ML 100 ML IV ONE (15:24)
[2023-08-17] MEDS ORDERED: POTA10TA51 PO (15:54)
== END 2023-08-17 15:52 | disposition left against medical advice (07) ==
LOC: ER 09:28
DX: R51.9 Headache, unspecified (principal); I10 Essential (primary) hypertension; R42 Dizziness and giddiness; N39.0 Urinary tract infection, site not specified; E87.6 Hypokalemia; E83.42 Hypomagnesemia; F17.210 Nicotine dependence, cigarettes, uncomplicated; J44.9 Chronic obstructive pulmonary disease, unspecified; E78.5 Hyperlipidemia, unspecified; Z79.899 Other long term (current) drug therapy; Z79.01 Long term (current) use of anticoagulants
CPT/HCPCS: 36415; 70450; 80053; 81001; 83735; 84484; 85025; 85610; 85652; 93005; 96365; 99285; J3475; J8597; Q0162

== ENCOUNTER → 2023-10-23 | Outpatient (CLI) | payer MEDICARE, MEDICAID ==
[~2023-10-23] MED LIST changes: +CEPH250C PO; +POTA10TA51 PO
== END | disposition home or self-care (01) ==
LOC: XYW 10:14
PROVIDERS: ATTEND Internal Medicine
DX: R09.89 Other specified symptoms and signs involving the circulatory and respiratory systems (principal)
CPT/HCPCS: 93886

== ENCOUNTER → 2023-10-30 | Outpatient (CLI) | payer MEDICARE, MEDICAID | END | disposition home or self-care (01) | LOC: XYW 10:03 | PROVIDERS: ATTEND Internal Medicine | DX: I08.0 Rheumatic disorders of both mitral and aortic valves (principal); I11.9 Hypertensive heart disease without heart failure | CPT/HCPCS: 93306 ==

== ENCOUNTER 2024-02-16 17:18 | Inpatient (IN) | payer MEDICARE, MEDICAID ==
[~2024-02-16] VITALS: Ht 162.6 cm; Wt 60.3 kg
[~2024-02-16 17:18] MED LIST changes: +LOSA-534 PO; -LOSA50TA46 PO; +POTA-36 PO; -POTA10TA51 PO
[2024-02-16 18:50] LABS: Urine Bacteria FEW /hpf (None Seen); Urine Blood Negative /uL (Negative); Urine Clarity Clear (Clear); Urine Color Light-Yellow (Yellow); Urine Protein, UAD Negative (Negative); Urine Urobilinogen Normal (Negative); Urine WBC 9 /hpf (0 - 5)
[2024-02-16] MEDS: HYDROmorphone HCL 2 MG/ML VL/or syr IM ONE (18:52)
[2024-02-16] MEDS: ONDANSETRON ODT 4 MG TAB PO ONE (18:52)
[2024-02-16 19:04] LABS: Basophils # (auto) 0 10 ^3/uL (0-0.2); Basophils % (auto) 0.4 % (0.0-2.0); Eosinophils # (auto) 0.5 10 ^3/uL (0-0.8); Eosinophils % (auto) 4.5 % (0.0-7.0); Hematocrit 35.6 % (36.0-46.0); Lymphocytes # (auto) 1.2 10 ^3/uL (0.4-5.4); Lymphocytes % (auto) 12.3 % (10.0-50.0); Mean Corpuscular Hemoglobin 30.8 pg (28.0-32.0); Mean Corpuscular Hgb Conc. 33.7 g/dL (32.0-36.0); Mean Corpuscular Volume 91.4 fL (80.0-100.0); Monocytes # (auto) 0.7 10 ^3/uL (0-1.3); Monocytes % (auto) 6.9 % (0.0-12.0); Neutrophils # (auto) 7.6 10 ^3/uL (1.6-8.6); Neutrophils % (auto) 75.9 % (37.0-80.0); Nucleated Red Blood Cells % 0.1 %; Red Cell Distribution Width 13.3 % (11.8-14.3)
[2024-02-16 19:18] LABS: INR 0.98 (0.9-1.15); Partial Thromboplastin Time 31.1 SEC (24.5-34.5); Prothrombin Time 10.4 sec (9.3-11.8)
[2024-02-16 19:55] LABS: Alanine Aminotransferase 12 U/L (7-40); Albumin 4.8 g/dL (3.2-4.8); Alkaline Phosphatase 114 U/L (46-116); Anion Gap 9 (5-15); Aspartate Aminotransferase 19 U/L (13-40); BUN/Creatinine Ratio 10.4 (10.0-20.0); Bilirubin, Total 0.3 mg/dL (0.2-1.0); Blood Urea Nitrogen 12 mg/dL (9-23); Carbon Dioxide 19 mmol/L (20-30); Chloride 109 mmol/L (98-107); Glucose 164 mg/dL (74-106); Magnesium 1.9 mg/dL (1.6-2.6); Potassium 3.9 mmol/L (3.5-5.1); Sodium 137 mmol/L (136-145); Total Protein 7.3 g/dL (5.7-8.2)
[2024-02-16 20:39] LABS: Lipase 49 U/L (12-53)
[2024-02-16] MEDS: ONDANSETRON HCL 4 MG/2 ML VIAL IM ONE (21:11)
[2024-02-16 22:15] VITALS: PULSE 66; RESP 16; O2SAT 94
[2024-02-16] MEDS ORDERED: HYDROcodone-ACET 5/325MG TAB PO PRN (22:15)
[2024-02-16] MEDS ORDERED: DOCUSATE SOD 100 MG CAP PO PRN (22:15)
[2024-02-16] MEDS ORDERED: ACETAMINOPHEN 325 MG TAB PO PRN (22:15)
[2024-02-16] MEDS: cefTRIAXone 1GM/50ML D5W 50 ML IV ONE (22:30)
[2024-02-16] MEDS: SODIUM CHLORIDE 0.9% 1,000 ML IV SCH (22:36)
[2024-02-16] MEDS: MIDAZOLAM HCL 5 MG/ML-1ML VIAL IV ONE (23:21)
[2024-02-16] MEDS ORDERED: MORPHINE SULFATE INJ 2 MG/ml SYRG IV PRN (23:45)
[2024-02-16] MEDS ORDERED: NITROGLYCERIN 0.4 MG SL TAB SL PRN (23:45)
[2024-02-17] MEDS: hydrALAZINE HCL 20 MG/ML VL IV PRN (01:56)
[2024-02-17 03:34] VITALS: BP 143/65; PULSE 83; RESP 20; TEMP 98.3; O2SAT 95
[2024-02-17 03:36] VITALS: BP 143/65; PULSE 83; RESP 20; TEMP 98.3; O2SAT 95
[2024-02-17] MEDS: ONDANSETRON HCL 4 MG/2 ML VIAL IV PRN (03:56)
[2024-02-17] MEDS: HYDROmorphone HCL 2 MG/ML VL/or syr IV PRN (03:58)
[2024-02-17 05:42] LABS: Basophils # (auto) 0 10 ^3/uL (0-0.2); Basophils % (auto) 0.3 % (0.0-2.0); Eosinophils # (auto) 0.5 10 ^3/uL (0-0.8); Eosinophils % (auto) 4.4 % (0.0-7.0); Hematocrit 34.9 % (36.0-46.0); Hemoglobin 11.5 g/dL (12.2-16.2); Lymphocytes % (auto) 17.7 % (10.0-50.0); Mean Corpuscular Hemoglobin 29.9 pg (28.0-32.0); Mean Corpuscular Volume 90.5 fL (80.0-100.0); Monocytes # (auto) 1.1 10 ^3/uL (0-1.3); Monocytes % (auto) 9.5 % (0.0-12.0); Neutrophils # (auto) 7.7 10 ^3/uL (1.6-8.6); Neutrophils % (auto) 68.1 % (37.0-80.0); Red Blood Cells 3.86 10^6/uL (4.0-5.20); Red Cell Distribution Width 13.3 % (11.8-14.3); White Blood Cell 11.3 10^3/uL (4.4-10.8)
[2024-02-17 06:08] LABS: Albumin 4.1 g/dL (3.2-4.8); Alkaline Phosphatase 98 U/L (46-116); Anion Gap 8 (5-15); Aspartate Aminotransferase 13 U/L (13-40); BUN/Creatinine Ratio 11.4 (10.0-20.0); Bilirubin, Total 0.2 mg/dL (0.2-1.0); Blood Urea Nitrogen 13 mg/dL (9-23); Calcium 9.8 mg/dL (8.7-10.4); Carbon Dioxide 23 mmol/L (20-30); Chloride 109 mmol/L (98-107); Glucose 137 mg/dL (74-106); Potassium 3.8 mmol/L (3.5-5.1); Sodium 140 mmol/L (136-145); Total Protein 6.5 g/dL (5.7-8.2)
[2024-02-17 06:09] LABS: Alanine Aminotransferase 9 U/L (7-40)
[2024-02-17 09:00] VITALS: BP 139/47; PULSE 82; RESP 18; TEMP 98; O2SAT 96
[2024-02-17] MEDS: PANTOPRAZOLE 40 MG/10 ML VIAL INJ IV SCH (09:30)
[2024-02-17] MEDS: cefTRIAXone 1GM/50ML D5W 50 ML IV SCH (09:33)
[2024-02-17] MEDS: ASPirin 81 mg TAB PO SCH (09:47)
[2024-02-17 13:00] VITALS: BP 103/60; PULSE 75; RESP 16; TEMP 97.7; O2SAT 94
[2024-02-17] MEDS ORDERED: metroNIDAZOLE 500MG/100ML 100 ML IV SCH (14:00)
[2024-02-17] MEDS: LACTATED RINGER'S 1,000 ML IV SCH (14:50)
[2024-02-17 16:55] VITALS: BP 152/50; PULSE 78; RESP 18; TEMP 98.8; O2SAT 94
[2024-02-17 21:00] VITALS: BP 140/39; PULSE 76; RESP 17; TEMP 98.8; O2SAT 88
[2024-02-17] MEDS ORDERED: ATORVASTATIN 20 MG TAB PO SCH (22:00)
[2024-02-17] MEDS: ATORVASTATIN 20 MG TAB PO SCH (22:00)
[2024-02-18] VITALS (10 sets, daily range): BP systolic 138–183; BP diastolic 38–62; PULSE 64–92; RESP 16–20; TEMP 98.1–99.3; O2SAT 88–94
[2024-02-18] MEDS: amLODIPine BESYLATE 5 MG TAB PO SCH (10:00)
[2024-02-18 10:10] LABS: Basophils # (auto) 0 10 ^3/uL (0-0.2); Basophils % (auto) 0.3 % (0.0-2.0); Eosinophils # (auto) 0.2 10 ^3/uL (0-0.8); Eosinophils % (auto) 2.5 % (0.0-7.0); Hematocrit 30.9 % (36.0-46.0); Hemoglobin 10.3 g/dL (12.2-16.2); Lymphocytes # (auto) 1.6 10 ^3/uL (0.4-5.4); Lymphocytes % (auto) 18.1 % (10.0-50.0); Mean Corpuscular Hemoglobin 31.1 pg (28.0-32.0); Mean Corpuscular Hgb Conc. 33.4 g/dL (32.0-36.0); Mean Corpuscular Volume 93.2 fL (80.0-100.0); Monocytes # (auto) 1.1 10 ^3/uL (0-1.3); Neutrophils % (auto) 67.1 % (37.0-80.0); Red Blood Cells 3.32 10^6/uL (4.0-5.20); Red Cell Distribution Width 13.9 % (11.8-14.3)
[2024-02-18 10:39] LABS: Chloride 112 mmol/L (98-107); Potassium 4.2 mmol/L (3.5-5.1); Sodium 141 mmol/L (136-145)
[2024-02-18 10:40] LABS: Anion Gap 5 (5-15); Calcium 9.1 mg/dL (8.5-10.1); Carbon Dioxide 24 mmol/L (20-30)
[2024-02-18 10:45] LABS: BUN/Creatinine Ratio 10.3 (10.0-20.0); Blood Urea Nitrogen 10 mg/dL (9-23); Glucose 105 mg/dL (74-106)
[2024-02-18] MEDS: hydrALAZINE HCL 20 MG/ML VL IV PRN (17:52)
[2024-02-19] VITALS (8 sets, daily range): BP systolic 141–171; BP diastolic 32–63; PULSE 72–90; RESP 16–22; TEMP 97.8–98.9; O2SAT 92–97
[2024-02-19] MEDS: GASTROGRAFIN 120 ML SOL ONE (07:56)
[2024-02-19] MEDS: metroNIDAZOLE 500 MG TAB PO SCH (17:48)
[2024-02-20] VITALS (8 sets, daily range): BP systolic 133–166; BP diastolic 37–53; PULSE 73–80; RESP 16–19; TEMP 97.5–99.3; O2SAT 91–96
[2024-02-21] VITALS (7 sets, daily range): BP systolic 142–153; BP diastolic 55–68; PULSE 69–79; RESP 12–19; TEMP 97.6–98.3; O2SAT 93–100
[2024-02-21] MEDS ORDERED: SODIUM CHLORIDE LOCK 10 ML ONE (09:38)
[2024-02-21] MEDS: MIDAZOLAM HCL 5 MG/ML-1ML VIAL ONE (13:19)
[2024-02-21] MEDS: fentaNYL CITRATE 100 MCG/2 ML VL ONE (13:19)
[2024-02-21] MEDS: diphenhdrAMINE HCL 50 MG/1 ML VL ONE (13:21)
[2024-02-22 01:00] VITALS: BP 150/52; PULSE 87; RESP 16; TEMP 98.1; O2SAT 96
[2024-02-22 05:00] VITALS: BP 156/59; PULSE 71; RESP 16; TEMP 98.5; O2SAT 94
[2024-02-22 09:00] VITALS: BP_SYST 149; BP_SYST 152; BP_DIAS 47; BP_DIAS 53; PULSE 71; PULSE 75; RESP 16; RESP 18; TEMP 98.3; TEMP 98.6; O2SAT 95; O2SAT 96
[2024-02-22] MEDS ORDERED: METR-344 PO (09:07)
[2024-02-22] MEDS ORDERED: PANT40T PO (09:07)
[2024-02-22] MEDS ORDERED: LEVO500T91 PO (09:07)
[2024-02-22 10:48] VITALS: BP 152/47; TEMP 36.8
== END 2024-02-22 11:37 | disposition home or self-care (01) | DRG 389 ==
LOC: ER 17:18 → EAST 23:47 → OVERFLOW 23:47 → EAST 02-17 03:00
PROVIDERS: ADMIT Nurse Practitioner Family; ATTEND Family Medicine
PROC: 0D9670Z Drainage of Stomach with Drainage Device, Via Natural or Artificial Opening (ICD-10-PCS; principal; 2024-02-17)
PROC: 0DBP8ZZ Excision of Rectum, Via Natural or Artificial Opening Endoscopic (ICD-10-PCS; 2024-02-21)
PROC: 0DBN8ZZ Excision of Sigmoid Colon, Via Natural or Artificial Opening Endoscopic (ICD-10-PCS; 2024-02-21)
DX: K56.600 Partial intestinal obstruction, unspecified as to cause (principal); K57.32 Diverticulitis of large intestine without perforation or abscess without bleeding; N39.0 Urinary tract infection, site not specified; J44.9 Chronic obstructive pulmonary disease, unspecified; K52.9 Noninfective gastroenteritis and colitis, unspecified; I25.10 Atherosclerotic heart disease of native coronary artery without angina pectoris; E78.5 Hyperlipidemia, unspecified; I10 Essential (primary) hypertension; K62.1 Rectal polyp; K64.8 Other hemorrhoids; F17.210 Nicotine dependence, cigarettes, uncomplicated; Z87.11 Personal history of peptic ulcer disease; Z90.710 Acquired absence of both cervix and uterus; Z98.61 Coronary angioplasty status; Z90.49 Acquired absence of other specified parts of digestive tract; Z83.3 Family history of diabetes mellitus; Z87.19 Personal history of other diseases of the digestive system
CPT/HCPCS: 36415; 45380; 71045; 74176; 74250; 80048; 80053; 81001; 83036; 83605; 83690; 83735; 84484; 85025; 85610; 85730; 87081; 87086; 96365; 96372; 96375; C9113; G0378; J2250; J2405

== ENCOUNTER → 2024-08-08 | Outpatient (CLI) | payer MEDICARE, MEDICAID ==
[~2024-08-08] MED LIST changes: +LEVO500T91 PO; +METR-344 PO; +PANT40T PO
[2024-08-08 09:53] LABS: Basophils # (auto) 0 10 ^3/uL (0-0.2); Basophils % (auto) 0.5 % (0.0-2.0); Eosinophils # (auto) 0.4 10 ^3/uL (0-0.8); Eosinophils % (auto) 5.6 % (0.0-7.0); Hemoglobin 10.9 g/dL (12.2-16.2); Lymphocytes # (auto) 1.7 10 ^3/uL (0.4-5.4); Lymphocytes % (auto) 23.1 % (10.0-50.0); Mean Corpuscular Hemoglobin 30.3 pg (28.0-32.0); Mean Corpuscular Hgb Conc. 33.2 g/dL (32.0-36.0); Mean Corpuscular Volume 91.3 fL (80.0-100.0); Monocytes # (auto) 0.8 10 ^3/uL (0-1.3); Monocytes % (auto) 11.6 % (0.0-12.0); Neutrophils # (auto) 4.3 10 ^3/uL (1.6-8.6); Neutrophils % (auto) 59.2 % (37.0-80.0); Platelet Count (auto) 249 10^3/uL (140-450); Red Blood Cells 3.61 10^6/uL (4.0-5.20); Red Cell Distribution Width 14.5 % (11.8-14.3); White Blood Cell 7.3 10^3/uL (4.4-10.8)
[2024-08-08 10:24] LABS: Alanine Aminotransferase 13 U/L (7-40); Albumin 4.3 g/dL (3.2-4.8); Alkaline Phosphatase 116 U/L (46-116); Anion Gap 9 (5-15); Aspartate Aminotransferase 17 U/L (13-40); BUN/Creatinine Ratio 16.2 (10.0-20.0); Bilirubin, Total 0.4 mg/dL (0.2-1.0); Blood Urea Nitrogen 18 mg/dL (9-23); Calcium 10.2 mg/dL (8.7-10.4); Carbon Dioxide 25 mmol/L (20-31); Glucose 97 mg/dL (74-106); Potassium 4.4 mmol/L (3.5-5.1); Sodium 143 mmol/L (136-145); Total Protein 6.8 g/dL (5.7-8.2)
[2024-08-08 10:37] LABS: Urine Bacteria None Seen /hpf (None Seen)
[2024-08-08 10:47] LABS: Chloride 109 mmol/L (98-107)
[2024-08-08 11:03] LABS: Urine Blood Negative /uL (Negative); Urine Clarity Clear (Clear); Urine Color Light-Yellow (Yellow); Urine Protein, UAD Negative (Negative); Urine Specific Gravity 1.008 (1.001-1.035); Urine Urobilinogen Normal (Negative); Urine WBC 2 /hpf (0 - 5); Urine pH 5.5 (5.0-9.0)
== END | disposition home or self-care (01) ==
LOC: LAB 09:15
PROVIDERS: ATTEND Student in an Organized Health Care Education/Training Program
DX: I10 Essential (primary) hypertension (principal); N39.0 Urinary tract infection, site not specified
CPT/HCPCS: 36415; 80053; 81001; 84443; 85025; 87086

== ENCOUNTER 2024-12-10 17:17 | Emergency (ER) | payer MEDICARE, MEDICAID ==
[~2024-12-10] VITALS: Ht 154.9 cm; Wt 48.3 kg
[2024-12-10 18:42] LABS: Basophils # (auto) 0 10 ^3/uL (0-0.2); Basophils % (auto) 0.5 % (0.0-2.0); Eosinophils # (auto) 0.5 10 ^3/uL (0-0.8); Hemoglobin 8.4 g/dL (12.2-16.2); Mean Corpuscular Hemoglobin 25.6 pg (28.0-32.0)
--- NOTE | 2024-12-10 18:42 | ED.PDOC ---
General HPI Comments 89-year-old female presents with a chief complaint of flank pain x 3 days. Patient reports that her pain is localized to her left flank, nonradiating, and is rated a 8/10. Patient denies any urinary symptoms like dysuria, hematuria, burning, or incontinence. Patient denies taking any OTC medications for this pain. Patient has been fatigued. Chief Complaint: Flank Pain Time Seen by MD: 18:21 Primary Care Provider: unknown Reviewed notes: Medications, Allergies Allergies: Coded Allergies: Iodine (Verified Allergy, Mild, RASH, 02/18/24) PER PATIENT'S DAUGHTER, ABOUT TEN YEATS AGO, PATIENT RECEIVED IV CONTRAST AND IT RESULTED IN A LOCALIZED RASH. BENADRYL WAS GIVEN AND THE S/S RESOLVED, AND DID NOT RESULT IN RESPIRATORY DISTRESS. Home Meds Active Scripts Polyethylene Glycol 3350 (Miralax) 17 Gm Pow, 17 GM PO DAILY for 5 Days, #5 POW Prov:DANIELLE KEENAN MD 12/11/24 Pantoprazole Sodium Sesquihydr (Pantoprazole Sodium) 40 Mg Tab, 40 MG PO DAILY, #30 TAB Prov:JULISA KELSEY MD 02/22/24 Metronidazole (Flagyl) 500 Mg Tab, 1 TAB PO TID, #30 TAB Prov:JULISA KELSEY MD 02/22/24 Levofloxacin Hemihydrate (LEVAQUIN 500 MG) 500 Mg Tab, 1 TAB PO DAILY, #7 TAB Prov:JULISA KELSEY MD 02/22/24 Potassium Chloride (POTASSIUM CHLORIDE CR) 10 Meq Tb, 1 TAB PO DAILY for 7 Days, #7 TAB 5 Refills Prov:ALEXIS ALAS MD 08/17/23 Cephalexin (KEFLEX CAPSULE) 250 Mg Cp, 500 MG PO QID for 10 Days, #80 CAP Prov:ALEXIS ALAS MD 08/17/23 Pantoprazole Sodium Sesquihydr (Protonix) 40 Mg Tab, 40 MG PO DAILY for 30 Days, #30 TAB 2 Refills Prov:FRANKO SMITH MD 09/14/22 Clopidogrel Bisulfate (Plavix) 75 Mg Tab, 75 MG PO DAILY for 30 Days, #30 TAB 3 Refills Prov:FRANKO SMITH MD 09/14/22 Ciprofloxacin Hcl (Cipro) 500 Mg Tab, 500 MG PO BID for 7 Days, #14 TAB Prov:PRAVIN KEVIN MD 08/16/22 Reported Medications Atorvastatin Calcium (ATORVASTATIN CALCIUM) 80 Mg Tab, 1 TAB PO DAILY, #30 TAB 5 Refills 09/10/22 Pantoprazole Sodium Sesquihydr (Protonix) 40 Mg Tab, 40 MG PO DAILY, #30 TAB 09/10/22 Losartan Potassium (Losartan Potassium) 50 Mg Tab, 50 MG PO BID for 30 Days, MG 09/10/22 Amlodipine Besylate (Amlodipine Besylate) 5 Mg Tab, 10 MG PO DAILY for 30 Days, MG 09/10/22 Aspirin (Aspir-Low) 81 Mg Tab, 81 MG PO DAILY for 30 Days, MG 09/10/22 Metoprolol Succinate (Metoprolol Succinate Er) 25 Mg Tab, 25 MG PO DAILY for 30 Days, MG 09/10/22 Information Source: Patient, Relative (Child) Mode of Arrival: Ambulatory Severity: Moderate Inability to void: None Timing: Days Duration: Since onset Has not urinated for: Minutes Prehospital treatment: None Onset: Spontaneous Symptoms: None History of: None Location: (L)Flank associated signs and symptoms: Flank Pain Vital Signs Vital Signs Date Time Temp Pulse Resp B/P (MAP) Pulse Ox O2 Delivery O2 Flow Rate FiO2 12/11/24 06:00 98.3 60 14 139/43 (75) 96 98.3 12/10/24 20:50 Room Air* 0 21 21 Physical Exam General: Awake, alert and oriented. No acute distress. Skin: Skin in warm, dry and intact. Appropriate color for ethnicity. HEENT: The head is normocephalic and atraumatic. Conjunctivae are clear without exudates or hemorrhage. Sclera is non-icteric. EOM are intact. No signs of nystagmus. Eyelids are normal in appearance without swelling or lesions. Oral mucosa is pink and moist Neck: The neck is supple with normal range of motion. No JVD. Cardiac: Heart rate and rhythm are normal. No murmurs, gallops, or rubs are auscultated. Respiratory: No signs of respiratory distress. Lung sounds are clear in all lobes bilaterally without rales, ronchi, or wheezes. Abdominal: Abdomen is soft, non-tender without distention. Bowel sounds are present and normoactive in all four quadrants. Positive left CVA tenderness. Musculoskeletal: No left lower back tenderness. Neurological: The patient is awake, alert and oriented to person, place, and time with normal speech. Speech is clear. There is no facial asymmetry. Psychiatric: Appropriate mood and affect. Good judgement and insight. Review of Systems: REVIEW OF SYSTEMS: No fever, no chills, positive fatigue, positive generalized weakness HEENT: No sore throat, no earache, no congestion, no neck pain. Cardiac: No chest pain. No palpitations. Lungs: No shortness of breath, no cough. GI: No nausea, no vomiting, no diarrhea, no constipation, : No dysuria, frequency, or urgency. No hematuria. left back/flank pain Musculoskeletal: No joint pain , no joint swelling, no extremity edema. Skin: No rash, no itching. Neuro: No headache, no dizziness, Past Medical History PAST MEDICAL HISTORY: Anemia, CAD, COPD, High Lipids, HTN, PUD Surgical History: Appendectomy, Hysterectomy, PTCA TRAUMA DOCTOR History: No Pertinent TRAUMA DOCTOR History Family History Family History: Unknown Social History Smoker: Cigarettes, Less Than 1 Pack/Day Alcohol: Denies ETOH Use Drugs: Denies Drug Use Lives In: Home Was a procedure done? Was a procedure done?: No Differential Diagnosis Kidney stone (Female): Other Urinary Problem (Female): AAA, Appendicitis, Aortic dissection, Impaction, Pyelonephritis, Urinary retention, Urolithiasis, UTI, Other X-Ray, Labs, Meds, VS Vital Signs Date Time Temp Pulse Resp B/P (MAP) Pulse Ox O2 Delivery O2 Flow Rate FiO2 12/11/24 06:00 98.3 60 14 139/43 (75) 96 98.3 12/11/24 02:04 97.2 51 16 143/43 (76) 98 97.2 12/10/24 22:18 97.4 67 16 134/96 (109) 98 97.4 12/10/24 20:50 16 96 Room Air* 0 21 21 12/10/24 20:03 98.0 61 16 145/42 (76) 97 98.0 12/10/24 17:42 97.8 68 18 127/46 (73) 99 97.8 12/10/24 17:39 52 Lab Test 12/10/24 18:25 12/10/24 18:23 Range/Units Urine Color Light-yellow Yellow Urine Clarity Turbid H Clear Urine pH 5.0 5.0-9.0 Urine Specific [place] 1.017 1.001-1.035 Urine Protein Negative Negative Urine Ketones Negative Negative Urine Blood Negative Negative /uL Urine Nitrite 2+ H Negative Urine Bilirubin Negative Negative Urine Urobilinogen Normal Negative mg/dL Urine Leukocyte Esterase 2+ Negative /uL Urine RBC 3 0 - 4 /hpf Urine Microscopic WBC 13 H 0-5 /HPF Urine Squamous Epithelial Cells Few <5 /hpf Urine Bacteria Few H None Seen /hpf Urine Glucose Normal Normal mg/dL White Blood Count 8.4 4.4-10.8 10^3/uL Red Blood Count 3.31 L 4.0-5.20 10^6/uL Hemoglobin 8.4 L 12.2-16.2 g/dL Hematocrit 27.5 L 36.0-46.0 % Mean Corpuscular Volume 83.1 80.0-100.0 fL Mean Corpuscular Hemoglobin 25.6 L 28.0-32.0 pg Mean Corpuscular Hemoglobin Concent 30.8 L 32.0-36.0 g/dL Red Cell Distribution Width 15.6 H 11.8-14.3 % Platelet Count 265 140-450 10^3/uL Mean Platelet Volume 8.7 6.9-10.8 fL Neutrophils (%) (Auto) 59.2 37.0-80.0 % Lymphocytes (%) (Auto) 26.5 10.0-50.0 % Monocytes (%) (Auto) 8.1 0.0-12.0 % Eosinophils (%) (Auto) 5.7 0.0-7.0 % Basophils (%) (Auto) 0.5 0.0-2.0 % Neutrophils # (Auto) 5.0 1.6-8.6 10 ^3/uL Lymphocytes # (Auto) 2.2 0.4-5.4 10 ^3/uL Monocytes # (Auto) 0.7 0-1.3 10 ^3/uL Eosinophils # (Auto) 0.5 0-0.8 10 ^3/uL Basophils # (Auto) 0 0-0.2 10 ^3/uL Nucleated Red Blood Cells 0.2 % Sodium Level 143 136-145 mmol/L Potassium Level 4.4 3.5-5.1 mmol/L Chloride Level 112 H 98-107 mmol/L Carbon Dioxide Level 21 20-31 mmol/L Anion Gap 10 5-15 Blood Urea Nitrogen 28 H 9-23 mg/dL Creatinine 1.20 H 0.550-1.02 mg/dL Glomerular Filtration Rate Calc 43 >90 mL/min BUN/Creatinine Ratio 23.3 H 10.0-20.0 Serum Glucose 96 74-106 mg/dL Calcium Level 9.4 8.7-10.4 mg/dL Current Medications Medications (Trade) Dose Ordered Sig/[place] Route Start Time Stop Time Status Last Admin Acetaminophen (Tylenol Tablet Or Capsule) 650 mg ONCE ONCE PO 12/10/24 19:00 12/10/24 19:01 DC 12/10/24 20:11 Tramadol HCl (Ultram) 25 mg ONCE ONCE PO 12/10/24 19:00 12/10/24 19:01 DC 12/10/24 20:11 Ceftriaxone Sodium 50 ml @ 100 mls/hr ONCE ONCE IV 12/10/24 19:45 12/10/24 20:14 DC 12/10/24 20:41 Methylprednisolone Sodium Succinate (Solu Medrol) 125 mg ONCE ONCE IV 12/11/24 01:00 12/11/24 01:01 DC 12/11/24 01:28 Diphenhydramine HCl (Benadryl Injection) 50 mg ONCE ONCE IV 12/11/24 04:00 12/11/24 04:01 DC 12/11/24 04:03 Time of 1ST Reevaluation: 18:51 Reevaluation 1ST: Unchanged Patient Education/Counseling: Diagnosis, Need For Follow Up Family Education/Counseling: Diagnosis, Need For Follow Up Departure 1 Departure Time of Disposition: 00:22 Impression: Primary Impression: UTI (urinary tract infection) Additional Impressions: Aortic dissection, abdominal Back pain Left against medical advice Constipation Disposition: 07 LEFT AGAINST MEDICAL ADVICE Condition: Stable Additional Instructions: ED DISCHARGE INSTRUCTIONS Your results are included below. Please take this packet to your primary care provider. Instructions: Please read all instructions provided in this packet carefully. Although you have been discharged from the Emergency Department, this does not mean that you have a "clean bill of health". No definitive diagnosis for your symptoms has been made today. It is possible that you are in the process of developing a serious illness. This is why you must return to the ED without fail if any new or worsening symptoms (especially if your symptoms include worsening back pain, chest pain, trouble breathing, abdominal pain, fever, headache, confusion, trouble seeing, or trouble walking) Take antibiotics as prescribed for UTI. It is also very important that you see your primary care doctor within the next 1-2 days to follow up. You will need further imaging to further evaluate possible aortic dissection seen on CAT can today. If you are unable to get an appointment, return to the ED for re-evaluation in 1-2 days. What is an aortic dissection? Aortic dissection occurs when a small tear develops in the wall of the aorta. The tear forms a new channel between the inner and outer layers of the aortic wall. This causes bleeding into the channel and can enlarge the tear. Aortic dissection is a life-threatening condition. What causes it? Aortic dissection can be caused by atherosclerosis (hardening of the arteries) and high blood pressure, traumatic injury to the chest, such as being hit by the steering wheel of a car during an accident, and conditions that are present at , such as Marfan syndrome or Seth-Danlos syndrome. Any one or any combination of the following may cause aortic dissection: High blood pressure. Most patients with an aortic dissection have had high blood pressure for many years. The high blood pressure accelerates the natural processes of tissue aging and damage to the tissue, promoting a weakness of the aortic wall and increasing the risk for a tear. Chest injury. Diseases of the connective tissue. Other diseases. Certain diseases increase the risk of an aortic dissection. These include lupus, polycystic kidney disease, Ronni's syndrome, giant cell arteritis A family history of aortic dissection is also a risk factor. What are the symptoms? Pain is the leading symptom of aortic dissection. A person typically has a sudden onset of pain at the moment of dissection. The pain is usually described as ripping or tearing and as the worst pain ever experienced. It is usually in between the shoulders on the back and might radiate to the arms or the neck. Less frequently, the pain can be felt as chest pain. The pain is very difficult to distinguish from that of angina or a heart attack. Other symptoms may include: Numbness and the inability to move the legs. Sweating. Nausea. Fainting. Pale skin. How is it diagnosed? Your doctor will ask you questions about your symptoms, medical history, lifestyle, and family medical history and do a physical exam. You may also be asked if you have been hit hard in the chest or been in an automobile accident. Several specialists may see you. Physical exam Your doctor will listen to your heart sounds with a stethoscope, take your pulse and evaluate your circulation, and evaluate your neurological status (nerve and brain function). As the symptoms of aortic dissection mimic many other conditions, you may need several tests. Tests If you have an aortic dissection, you may need: Blood tests. These tests can give your doctor clues about what is causing your symptoms. A chest X-ray. Computed tomography scanning (CT) or magnetic resonance imaging (MRI) to help your doctor see the dissection. A transthoracic echocardiography or transesophageal echocardiography (SKYE) to let your doctor look at blood vessels inside your chest. An intravascular ultrasound to get a better look at your blood vessels. How is aortic dissection treated? The treatment of aortic dissection depends in part on where the dissection is located: Dissections involving the aorta where it goes up from the heart (with or without the arch) are known as type A dissections and are typically treated with surgery. Dissections involving the rest of the aorta are known as type B dissections. If there are no complications, type B dissections are typically treated with medi cines. Initial emergency treatment Treatment for aortic dissection should be started immediately following the diagnosis. The goal of initial emergency treatment is to relieve pain and to reduce the blood pressure on the dissection (reduction of the pulsatile load). This helps prevent additional bleeding and reduces the risk of a rupture. Typically, you are put immediately in an intensive care unit (ICU) or taken to the operating room. Your doctor will continuously monitor and control your blood pressure, pulse, and heart activity. Treating type A dissections Typically, the first line of treatment for type A dissections (dissection of the aorta involving the ascending aorta) is surgery. The goal of the operation is to prevent due to bleeding and to reestablish blood flow into the extremities and inner organs (if branches of the aorta are involved in the dissection process). In this open-heart procedure, your chest is opened and the surgeon removes the part of the aorta where the tear is found. The portion of the aorta removed can be replaced with a man-made graft. Another approach uses a similar graft that is placed inside the aorta. In this approach the ascending aorta is not replaced but internally reinforced. The surgery cannot be done if you are already suffering from a severe complication in the process of dissection, such as a stroke. In this situation an operation would lead to severe bleeding in the brain. Possible complications of aortic dissection and its surgery include: Paralysis. Kidney (renal) failure. Infections in the lung and lung failure. Decreased heart function and heart attack. It is sometimes not possible to use surgery in type A dissections. In this case, the same procedures and medicines outlined in the initial emergency treatment section are used. Treating type B dissections Type B dissections are usually treated with medicines. A procedure or surgery may be done for a few reasons. These reasons include rupture of the aorta or damage to other arteries or organs. How can you prevent it? You may help prevent an aortic dissection by managing risk factors for atherosclerosis, such as high blood pressure. EXAM: CT CT ANGIO ABD AORTA W RUN OFF HISTORY: abdominal aortic dissection COMPARISON: Noncontrast CT scan of the abdomen and pelvis dated 02/16/2024. TECHNIQUE: High resolution helical CT images of the abdomen, pelvis, and bilateral lower extremities were performed with 100 ml Isovue 370 IV contrast using CTA protocol. Sagittal and coronal reformatted images and 3-D MIP reconstructions were obtained. This CT exam was performed using one or more of the following dose reduction techniques: Automated exposure control, adjustment of the mA and/or kV according to patient size, or use of iterative reconstruction technique. Radiation Dose : CT Dose: CTDI volume is 40.31 mGy. Dose-length product is 127.73 mGy*cm FINDINGS: Abdomen: No abdominal aortic aneurysm or significant stenosis. There is a chronic focal dissection of the distal abdominal aorta (image 82, series 2), sim ilar to that seen on the previous CT scan. There are thick atherosclerotic calcifications of the abdominal aorta and major branches. 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 The BENJAMIN is patent. Renals: There are single renal arteries bilaterally. There is a left renal stent which appears patent. There is 50% stenosis of the left renal artery just distal to the stent. There is thick atherosclerotic calcification of the right renal artery origin with estimated 90% stenosis. Pelvis: There is a right common iliac artery stent, which appears patent. No high-grade stenosis in the left common iliac artery or bilateral external or internal iliac arteries. Right lower extremity: The common femoral artery is patent. There is a, and the stent is patent. The superficial femoral artery stent measuring 29 cm longitu dinal, and the stent appears patent. The popliteal artery, peroneal artery, and posterior tibial artery are patent. There is near complete occlusion of the right anterior tibial artery proximally and complete occlusion of the right anterior tibial artery in the mid calf, with reconstitution of flow distally. There is 2-vessel runoff to the right ankle. There is deep vein varicosity in the right posterior calf (images [id number], series 2). Left lower extremity: The common femoral artery is mildly narrowed. There is a superficial femoral artery stent measuring 27 cm longitudinal, and the stent appears patent. The popliteal artery, posterior tibial artery, and peroneal artery are patent. There is near complete occlusion of the anterior tibial artery in the distal calf. There is compromised 3-vessel runoff to the left ankle. Miscellaneous: There is paraseptal emphysema in the right lung base posteriorly. The heart is enlarged. There are extensive coronary artery calcifications. There is left main coronary artery stent. No central pulmonary emboli. Multiple small gallstones accumulate in the dependent portion of the gallbladder. There is mild bilateral hydronephrosis and hydroureter without visualization of obstructing calculi. There is fecal retention throughout the colon. There are descending and sigmoid colon diverticula without evidence of acute diverticulitis. There are postoperative changes of the left lower quadrant small bowel. The appendix is not visualized. The uterus is surgically absent. There is a chronic mild superior endplate compression fracture of L3. There is moderate to severe lumbar degenerative disc disease. There are [id number] degenerative changes of the bilateral knees, greatest in the medial compartments. IMPRESSION: 1. No abdominal aortic aneurysm. There is a small chronic focal dissection of the distal abdominal aorta. 2. 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 3. Multiple arterial stents, including left renal artery, right common iliac artery, and bilateral superficial femoral arteries. All of the stents appear patent. 4. 2 vessel runoff to the right ankle and compromised 3-vessel runoff to the left ankle. 5. Cardiomegaly and extensive coronary artery disease. 6. Emphysema in the lung bases. 7. Cholelithiasis. 8. Fecal retention in the colon suggestive of constipation. 9. Descending and sigmoid colon diverticulosis without evidence of acute diverticulitis. 10. Postoperative changes of hysterectomy and possibly also appendectomy. e-Prescriptions Polyethylene Glycol 3350 (Miralax) 17 Gm Pow 17 GM PO DAILY for 5 Days, #5 POW Prov: DANIELLE KEENAN MD 12/11/24 Comments 89-year-old female with left back pain, CVA tenderness. Workup shows UTI. She had already been started on ciprofloxacin. Incidental focal and chronic atherosclerotic aortic dissection noted. Patient and daughter importance of follow up for monitoring. Patient's blood pressure controlled. Patient well-appearing, nontoxic. Advised prompt follow-up with PCP, return to the ED with any new, worsening or concerning symptoms. Critical Care Note Critical Care Time?: No Stability Stability form required: No Heart Score Heart Score: Heart Score Response (Comments) Value History N/A 0 EKG N/A 0 Age N/A 0 Risk Factors N/A 0 Troponin N/A 0 Total 0 I personally scribed for DANIELLE KEENAN MD ([email or web address]) on 12/10/24 at 18:42. Electronically submitted by Kendall Ponce ([email or web address]). DANIELLE KEENAN MD Dec 10, 2024 18:42
[2024-12-10 18:44] LABS: Eosinophils % (auto) 5.7 % (0.0-7.0); Hematocrit 27.5 % (36.0-46.0); Lymphocytes # (auto) 2.2 10 ^3/uL (0.4-5.4); Lymphocytes % (auto) 26.5 % (10.0-50.0); Mean Corpuscular Hgb Conc. 30.8 g/dL (32.0-36.0); Mean Corpuscular Volume 83.1 fL (80.0-100.0); Monocytes # (auto) 0.7 10 ^3/uL (0-1.3); Monocytes % (auto) 8.1 % (0.0-12.0); Neutrophils % (auto) 59.2 % (37.0-80.0); Nucleated Red Blood Cells % 0.2 %; Platelet Count (auto) 265 10^3/uL (140-450); Red Blood Cells 3.31 10^6/uL (4.0-5.20); Red Cell Distribution Width 15.6 % (11.8-14.3); White Blood Cell 8.4 10^3/uL (4.4-10.8)
[2024-12-10 18:48] LABS: Potassium 4.4 mmol/L (3.5-5.1); Sodium 143 mmol/L (136-145)
[2024-12-10 18:49] LABS: Anion Gap 10 (5-15); Carbon Dioxide 21 mmol/L (20-31)
[2024-12-10 18:50] LABS: Calcium 9.4 mg/dL (8.7-10.4)
[2024-12-10 18:51] LABS: Urine Bacteria FEW /hpf (None Seen); Urine Blood Negative /uL (Negative); Urine Clarity Turbid (Clear); Urine Color Light-Yellow (Yellow); Urine Protein, UAD Negative (Negative); Urine Specific Gravity 1.017 (1.001-1.035); Urine Squamous Epithelial Cell FEW /hpf (<5); Urine Urobilinogen Normal (Negative); Urine WBC 13 /HPF (0-5)
[2024-12-10 18:54] LABS: Glucose 96 mg/dL (74-106)
[2024-12-10 18:55] LABS: BUN/Creatinine Ratio 23.3 (10.0-20.0)
--- NOTE | 2024-12-10 19:03 | ECG ---
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
[2024-12-10 19:30] LABS: Blood Urea Nitrogen 28 mg/dL (9-23); Chloride 112 mmol/L (98-107)
[2024-12-10] MEDS: traMADol HCL 50 MG TAB PO ONE (20:11)
[2024-12-10] MEDS: ACETAMINOPHEN 500 MG TAB or CAP PO ONE (20:11)
[2024-12-10] MEDS: cefTRIAXone 1GM/50ML D5W 50 ML IV ONE (20:41)
[2024-12-10 20:50] VITALS: RESP 16; O2SAT 96
--- NOTE | 2024-12-10 21:37 | DVH ---
Exam: CT CT AB PEL WO CON-NO ORAL OR IV History: Left flank pain Comparison Study: CT CT AB PEL WO CON-NO ORAL OR IV on DOS: 02/19/24, CT CT AB PEL WO CON-NO ORAL OR I V on DOS: 02/16/24, CT ABD PELVIS WO CONTRAST on DOS: 04/21/22 Contrast: None TECHNIQUE: Multidetector CT of abdomen and pelvis without IV contrast. Radiation Dose Information: CT Dose: CTDI volume is 5.13 mGy. Dose-length product is 246.03 mGy*cm FINDINGS: There is cardiomegaly and probably early interstitial lung disease involving the lung bases. There i s focal area of either paraseptal emphysema early honeycombing involving the medial right posterior l melo base. There is atherosclerotic disease involving the coronary arteries and also the mitral annulus. Lower esophagus appears to be within normal limits. stomach mucosa is normal. There are multiple sma ll stones layering in the dependent portion of the gallbladder. Abdominal aorta demonstrates severe atherosclerotic disease with dense calcifications seen in the kem al arteries and the proximal celiac and superior mesenteric arteries there is also possibility of a s mall dissection involving the infrarenal aorta this is seen on image 39. There are dense calcificatio ns probable stenosis involving proximal iliacs in the proximal external and internal iliacs. There is anasarca. There is diverticulosis. Stool burden is moderately large liver is normal size spleen is normal size there appears to be a stone in the interpolar region of the right kidney no hydronephrosi s. Adrenals and kidneys otherwise normal terminal ileum is unremarkable. There is no evidence for acute appendicitis there are no fluid collections in the abdomen or pelvis n o evidence for obstruction of the gastrointestinal tract. There is severe disc disease at L4-L5 loss of vertebral body height involving L3. Bladder is unremarkable. There are no fluid collections in the cul-de-sac and there dense calcifications in the proximal super ficial femoral arteries. IMPRESSION: Significant atherosclerotic disease particularly in the superior abdominal aorta and in the proximal renal arteries. There may be a small focal atherosclerotic dissection of the infrarenal abdominal aorta. Probable developing interstitial lung disease. There is anasarca. There is diverticulosis. No evidence for diverticulitis. There is a stone in the interpolar region of the right kidney.
[2024-12-10] MEDS: IOHEXOL 350 MG/ML 100ML IJ ONE (23:15)
[2024-12-11] MEDS: methylPREDNISolone SOD SUCC 125 MG/2 ML VL IV ONE (01:28)
[2024-12-11] MEDS: diphenhdrAMINE HCL 50 MG/1 ML VL IV ONE (04:03)
--- NOTE | 2024-12-11 05:32 | DVH ---
EXAM: CT CT ANGIO ABD AORTA W RUN OFF HISTORY: abdominal aortic dissection COMPARISON: Noncontrast CT scan of the abdomen and pelvis dated 02/16/2024. TECHNIQUE: High resolution helical CT images of the abdomen, pelvis, and bilateral lower extremities were perfor med with 100 ml Isovue 370 IV contrast using CTA protocol. Sagittal and coronal reformatted images a nd 3-D MIP reconstructions were obtained. This CT exam was performed using one or more of the follow ing dose reduction techniques: Automated exposure control, adjustment of the mA and/or kV according to patient size, or use of iterative reconstruction technique. Radiation Dose : CT Dose: CTDI volume is 40.31 mGy. Dose-length product is 127.73 mGy*cm FINDINGS: Abdomen: No abdominal aortic aneurysm or significant stenosis. There is a chronic focal dissection of the distal abdominal aorta (image 82, series 2), similar to that seen on the previous CT scan. There are thick atherosclerotic calcifications of the abdominal aorta and major branches. 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 The BENJAMIN is patent. Renals: There are single renal arteries bilaterally. There is a left renal stent which appears medina nt. There is 50% stenosis of the left renal artery just distal to the stent. There is thick atherosc lerotic calcification of the right renal artery origin with estimated 90% stenosis. Pelvis: There is a right common iliac artery stent, which appears patent. No high-grade stenosis in t he left common iliac artery or bilateral external or internal iliac arteries. Right lower extremity: The common femoral artery is patent. There is a, and the stent is patent. Th e superficial femoral artery stent measuring 29 cm longitudinal, and the stent appears patent. The p opliteal artery, peroneal artery, and posterior tibial artery are patent. There is near complete occl usion of the right anterior tibial artery proximally and complete occlusion of the right anterior tib ial artery in the mid calf, with reconstitution of flow distally. There is 2-vessel runoff to the rig ht ankle. There is deep vein varicosity in the right posterior calf (images [id number], series 2). Left lower extremity: The common femoral artery is mildly narrowed. There is a superficial femoral artery stent measuring 27 cm longitudinal, and the stent appears patent. The popliteal artery, poste rior tibial artery, and peroneal artery are patent. There is near complete occlusion of the anterior tibial artery in the distal calf. There is compromised 3-vessel runoff to the left ankle. Miscellaneous: There is paraseptal emphysema in the right lung base posteriorly. The heart is enlarge d. There are extensive coronary artery calcifications. There is left main coronary artery stent. No central pulmonary emboli. Multiple small gallstones accumulate in the dependent portion of the gallbl adder. There is mild bilateral hydronephrosis and hydroureter without visualization of obstructing ca lculi. There is fecal retention throughout the colon. There are descending and sigmoid colon diverti cula without evidence of acute diverticulitis. There are postoperative changes of the left lower quad rant small bowel. The appendix is not visualized. The uterus is surgically absent. There is a chronic mild superior endplate compression fracture of L3. There is moderate to severe lumbar degenerative d isc disease. There are [id number] degenerative changes of the bilateral knees, greatest in the medial compartments. IMPRESSION: 1. No abdominal aortic aneurysm. There is a small chronic focal dissection of the distal abdominal a [place]. 2. 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 3. Multiple arterial stents, including left renal artery, right common iliac artery, and bilateral crawley perficial femoral arteries. All of the stents appear patent. 4. 2 vessel runoff to the right ankle and compromised 3-vessel runoff to the left ankle. 5. Cardiomegaly and extensive coronary artery disease. 6. Emphysema in the lung bases. 7. Cholelithiasis. 8. Fecal retention in the colon suggestive of constipation. 9. Descending and sigmoid colon diverticulosis without evidence of acute diverticulitis. 10. Postoperative changes of hysterectomy and possibly also appendectomy.
[2024-12-11] MEDS ORDERED: POLY335015 PO (05:44)
[2024-12-11 06:00] VITALS: BP 139/43; PULSE 60; RESP 14; TEMP 98.3; O2SAT 96
== END 2024-12-11 06:14 | disposition home or self-care (01) ==
LOC: ER 17:19
DX: N39.0 Urinary tract infection, site not specified (principal); I71.02 Dissection of abdominal aorta; M54.9 Dorsalgia, unspecified; K59.00 Constipation, unspecified; J44.9 Chronic obstructive pulmonary disease, unspecified; E78.5 Hyperlipidemia, unspecified; I10 Essential (primary) hypertension; F17.210 Nicotine dependence, cigarettes, uncomplicated; Z90.49 Acquired absence of other specified parts of digestive tract; Z88.8 Allergy status to other drugs, medicaments and biological substances; Z87.11 Personal history of peptic ulcer disease; Z79.899 Other long term (current) drug therapy; Z79.82 Long term (current) use of aspirin; Z90.710 Acquired absence of both cervix and uterus; Z79.02 Long term (current) use of antithrombotics/antiplatelets; Z91.040 Latex allergy status
CPT/HCPCS: 36415; 74176; 75635; 80048; 81001; 85025; 93005; 96365; 96375; 99285; J0696; J1200; J2919; Q9967